=== PATIENT | male | born 1980 | race Caucasian/White ===

== ENCOUNTER 2018-07-25 07:36 | Emergency (ER) | payer OTHER ==
[~2018-07-25] VITALS: Ht 213.4 cm; Wt 117.9 kg
[2018-07-25] MEDS ORDERED: SYNTHROID125 MCG (07:50)
[2018-07-25] MEDS ORDERED: ETODOLAC500 MG (07:50)
[2018-07-25] MEDS ORDERED: OXYCODONE 10 MG (07:51)
[2018-07-25] MEDS ORDERED: BUSPIRONE HCL7.5 MG (07:52)
== END 2018-07-25 13:15 | disposition home or self-care (01) ==
LOC: ER 07:36
DX: J06.9 Acute upper respiratory infection, unspecified (principal); R07.89 Other chest pain